=== PATIENT | female | born 1990 | race Caucasian/White ===

== ENCOUNTER 2018-03-23 20:24 | Emergency (ER) | payer OTHER, MEDICAID ==
[~2018-03-23] VITALS: Ht 167.6 cm; Wt 90.7 kg
[~2018-03-23 20:24] MED LIST: ACCUNEB SO1.25 MG/1 INH; ADDERALL 20 MG20 M1 PO; AMBIEN 10 MG TA10 MG; AMITRIPTYLINE H25 M2 PO; AMOXICILLIN 50500 MG PO; AMRIX15 MG PO; BENADRYL25 MG PO; CARAFATE 11 GM/10 M1; CYPROHEPTADINE 44 MG PO; EFFEXOR XR150 MG PO; FLEXERIL; FLEXERIL PO; GABAPENTIN800 M1 PO; HYDROCODONE-AP1 EAC6 PO; LATUDA80 MG; MAGOX 400400 MG PO; MELATONIN3 MG; MELATONIN3 MG PO; MYRBETRIQ25 MG PO; NEXPLANON68 MG SQ; NORCO 10-325 T1 EACH PO; NORCO 5-325 TA1 EAC1 PO; NORCO 5-325 TA1 EACH PO; ONDANSETRON HCL4 M2 PO; PHENERGAN 25 MG25 M1 PO; PRAZOSIN 1 MG CA1 M1 PO; PREDNISONE 20 M20 M1 PO; PREDNISONE 20 M20 MG PO; PRILOSEC 20 MG20 MG PO; PROPRANOLOL 20M20 M1 PO; PROTONIX40 M1 PO; TRAZODONE HCL100 MG PO; TRAZODONE HCL50 MG PO; XANAX1 MG; ZANTAC 150MG T150 MG PO; ZOFRAN ODT4 MG PO; ZYPREXA 5 MG TAB5 M2 PO; [UNRECOGNIZED DRUG - OTHER] PO
[2018-03-23] MEDS ORDERED: REXULTI3 MG PO (20:41)
[2018-03-23 20:45] LABS: URINE BILIRUBIN NEGATIVE (Negative); URINE BLOOD NEGATIVE (Negative); URINE CLARITY CLEAR; URINE COLOR YELLOW; URINE GLUCOSE-RANDOM NEGATIVE (Negative); URINE KETONES NEGATIVE (Negative); URINE LEUKOCYTES-REFLEX NEGATIVE (Negative); URINE NITRITE-REFLEX NEGATIVE (Negative); URINE PROTEIN NEGATIVE (Negative); URINE SPECIFIC GRAVITY >= 1.030 (1.005-1.030)
[2018-03-23 20:54] LABS: AMP/METHAMP POSITIVE (Negative); BARBITURATES Negative (Negative); BENZODIAZEPINES Negative (Negative); COCAINE Negative (Negative); METHADONE Negative (Negative); OPIATES POSITIVE (Negative); PCP Negative (Negative); THC POSITIVE (Negative)
[2018-03-23 21:06] LABS: ABSOLUTE EOSINOPHILS 0.3 thou/uL (0.0-0.7); ABSOLUTE LYMPHOCYTES 2.3 thou/uL (0.8-5.3); ABSOLUTE MONOCYTES 0.7 thou/uL (0.0-1.2); ABSOLUTE NEUTROPHILS 4.5 thou/uL (1.6-8.1); BASOPHILS 0.3 %; EOSINOPHILS 3.5 %; HEMATOCRIT 44.5 % (37.0-47.0); HEMOGLOBIN 15.2 gm/dL (12.0-15.0); LYMPHOCYTES 29.5 %; MCH 32.1 pg (26.0-34.0); MCV 94.2 fL (80.0-100.0); MONOCYTES 9.2 %; MPV 9.3 fl. (7.2-11.1); NUCLEATED RBCS 0 /100WBC; PLATELET COUNT* 211 thou/uL (150-400); POLYS 57.5 %; RBC 4.73 mil/uL (4.20-5.00); RDW-CV 13.5 % (10.5-14.5); WBC 7.8 thou/uL (4.0-11.0)
[2018-03-23 21:11] LABS: CALCIUM 8.4 mg/dL (8.5-10.1); CREATININE 1.1 mg/dL (0.6-1.3); POTASSIUM 3.6 mmol/L (3.5-5.1)
[2018-03-23 21:15] LABS: ALBUMIN 4.4 g/dL (3.4-5.0); TOTAL BILIRUBIN 0.3 mg/dL (<0.1-1.0); TOTAL PROTEIN 7.3 g/dL (6.4-8.2)
[2018-03-23 21:47] VITALS: BP 105/58
== END 2018-03-23 21:54 | disposition home or self-care (01) ==
LOC: M.ERS 20:24
PROVIDERS: Nurse Practitioner Family
DX: G89.29 Other chronic pain (principal); R10.12 Left upper quadrant pain; R11.2 Nausea with vomiting, unspecified; F41.9 Anxiety disorder, unspecified; F43.10 Post-traumatic stress disorder, unspecified; F17.210 Nicotine dependence, cigarettes, uncomplicated; F31.9 Bipolar disorder, unspecified; Z90.49 Acquired absence of other specified parts of digestive tract; Z88.8 Allergy status to other drugs, medicaments and biological substances; Z88.6 Allergy status to analgesic agent

== ENCOUNTER 2018-05-04 09:33 | Emergency (ER) | payer OTHER, MEDICAID ==
[~2018-05-04] VITALS: Ht 167.6 cm; Wt 90.7 kg
[~2018-05-04 09:33] MED LIST changes: +REXULTI3 MG PO
[2018-05-04] MEDS ORDERED: NORCO 5-325 TA1 EACH PO (10:44)
[2018-05-04 10:56] VITALS: BP 106/64
== END 2018-05-04 10:56 | disposition home or self-care (01) ==
LOC: M.ERS 09:33
DX: M54.5 Low back pain (principal); F41.9 Anxiety disorder, unspecified; F31.9 Bipolar disorder, unspecified; F17.210 Nicotine dependence, cigarettes, uncomplicated; Z90.49 Acquired absence of other specified parts of digestive tract; Z88.8 Allergy status to other drugs, medicaments and biological substances